=== PATIENT | male | born 1995 | race Caucasian/White ===

== ENCOUNTER 2017-02-11 07:02 | Day surgery (SDC) | payer OTHER ==
[2017-02-10 14:00] VITALS: BMI 19.3
[2017-02-11] MEDS ORDERED: Oxymetazoline HCl 0.05% ( 15 ML ) ONE ×2 (08:16→09:31)
[2017-02-11] MEDS ORDERED: Midazolam HCl 2 mg/2 ml Vial ONE (09:07)
[2017-02-11] MEDS ORDERED: Fentanyl 100 MCG/2 ML VIAL ONE ×2 (09:07→10:35)
[2017-02-11] MEDS ORDERED: Lidocaine 1% w/Epinephrine 1:200K 30 ML VIAL ONE (09:31)
[2017-02-11] MEDS ORDERED: Non-Formulary Medication 1 EACH PO PRN (10:44)
[2017-02-11] MEDS ORDERED: Promethazine HCl 25 MG/ML VIAL IM/IV PRN (10:44)
[2017-02-11] MEDS ORDERED: Ondansetron HCl/PF 4 MG/2 ML Vial IVP PRN (10:44)
[2017-02-11] MEDS ORDERED: Hydrocodone-Acetamin 15 ML UDCUP ONE (11:21)
--- NOTE | 2017-02-11 15:38 | OP ---
PREOPERATIVE DIAGNOSIS: Displaced nasal septal fracture. POSTOPERATIVE DIAGNOSIS: Displaced nasal septal fracture. PROCEDURE PERFORMED: Closed reduction of the nasal septal fracture with external and internal splint ing. FINDINGS: The patient had a fracture of the left nasal bone and the bony pyramid. PROCEDURE IN DETAIL: After consent was obtained, the patient was identified, brought to the operatin g room and the laryngeal mask anesthesia was obtained. The patient was positioned for surgery. The nose was decongested. The patient had marked mobility of his bony pyramid, it was nose bilaterally. This was mobilized and placed back in reduction. The septum was also put back in midline. Randle sp lints were suture secured to the anterior septum. We then put Gelfoam to support the depressed fragm ents from an intranasal approach. We then placed a [place] splint externally to secure the fractured fragments in place. The patient was awakened and taken to recovery room in a stable condition prior to discharge home. At bedside, he received intravenous morphine sedation. We then used topical Afri n to obtain significant vasoconstriction and proceeded with reducing the comminuted fragments. A Den raquel splint was then placed in a standard fashion after the skin was prepped and benzoin was applied. The patient tolerated the procedure well with no complications.
[2017-02-11] MEDS ORDERED: Ondansetron HCl/PF 4 MG/2 ML Vial ONE (17:07)
[2017-02-11] MEDS ORDERED: Ketorolac Tromethamine 30 MG/ML VIAL ONE (17:07)
[2017-02-11] MEDS ORDERED: Dexamethasone 20 MG/5 ML VIAL ONE (17:07)
[2017-02-11] MEDS ORDERED: Lidocaine 1% PF 5 ML VIAL ONE (17:07)
[2017-02-11] MEDS ORDERED: Propofol 200 MG/20 ML VIAL ONE (17:07)
== END 2017-02-11 12:40 | disposition home or self-care (01) ==
LOC: SDC 07:02
PROVIDERS: ATTEND Specialist
PROC: 0NSBXZZ Reposition Nasal Bone, External Approach (ICD-10-PCS; principal; 2017-02-11)
DX: S02.2XXA Fracture of nasal bones, initial encounter for closed fracture (principal); F17.210 Nicotine dependence, cigarettes, uncomplicated; F90.0 Attention-deficit hyperactivity disorder, predominantly inattentive type; Z90.89 Acquired absence of other organs; Z98.890 Other specified postprocedural states; Z79.899 Other long term (current) drug therapy; W22.8XXA Striking against or struck by other objects, initial encounter
CPT/HCPCS: 96374; J1100; J1885; J2001; J2250; J2405; J2704; J3010